=== PATIENT | male | born 1980 | race African-American/Black ===

== ENCOUNTER 2023-05-25 12:15 | Emergency (ER) | payer MEDICAID, SELFPAY ==
[2023-05-25 13:30] VITALS: BP 127/78; PULSE 84; RESP 16; TEMP 36.9; O2SAT 98; BMI 24.6
--- NOTE | 2023-05-25 13:39 | ED.GENADULT ---
HPI - General Adult General Chief complaint: Back Pain/Injury Stated complaint: Chest pain, lower back pain Time Seen by Provider: 05/25/23 14:25 Source: patient and RN notes reviewed Mode of arrival: ambulatory Limitations: no limitations History of Present Illness HPI narrative: This is a 43-year-old Beninese Creole speaking male, with no known medical problems, presenting to the emergency department with complaints of back pain, nasal congestion, cough x 4 days. Patient denies any recent trauma or injury to his back. He denies any sick contacts. He states that he has been coughing up white-colored sputum. He denies any current chest pain, abdominal pain, nausea, vomiting or diarrhea. He has been taking Robitussin [id number] which has provided him with some relief. No other complaints or concerns at this time. MD complaint: Body aches, back pain, cough Onset (ago): day(s) Radiation: back Severity: moderate Quality: aching Pain Consistency: constant Relieving factors: none Exacerbating factors: none Associated symptoms: denies other symptoms Treatments prior to arrival: none Related Data Previous Rx's Medication Instructions Recorded acetaminophen 500 mg tablet 500 mg PO Q6H PRN pain #30 tabs 05/25/23 (Tylenol Extra Strength) benzonatate 200 mg capsule 200 mg PO TID PRN cough #14 caps 05/25/23 cyclobenzaprine 10 mg tablet 10 mg PO TID PRN muscle spasm #14 05/25/23 tabs ibuprofen 600 mg tablet 600 mg PO Q6H PRN pain #30 tabs 05/25/23 lidocaine 5 % topical patch 1 patch topical DAILY #30 ea 05/25/23 (Lidoderm) Allergies Allergy/AdvReac Type Severity Reaction Status Date / Time No Known Allergies Allergy Verified 05/25/23 13:38 Review of Systems Review of Systems: Yes all other systems are reviewed and are negative Constitutional: Constitutional: Reports as per [facility] Past Medical History Attestation statement: The following information was validated with the patient. Onset Date is defined in the Problem List Problems that require an onset date and time if occurred within 24 hrs of arrival to the ED Aortic Dissection and Rupture; Neurologic impairment; Cardiopulmonary Arrest; Endotracheal Intubation; Insertion or Replacement of Mechanical Circulatory Assist Device Social History Social History Advance Directives: No Advance Directives Information Provided: Yes Physical Exam ED Vital Signs: Vital Signs - 24 hr 05/25/23 13:30 05/25/23 15:49 05/25/23 18:46 Temperature 98.5 F 97.8 F 98.1 F Pulse Rate 84 80 86 Respiratory Rate 16 18 18 Blood Pressure 127/78 119/77 124/76 Pulse Oximetry 98 100 99 Oxygen Delivery Method Room Air Room Air Room Air BMI result Body Mass Index 24.6 Const General: cooperative, comfortable and no acute distress Orientation/consciousness: patient oriented x3 Limitations: no limitations HENMT Head: Yes normal to inspection, Yes normocephalic and Yes atraumatic Ears: hearing grossly normal bilaterally and TM's normal bilaterally General nose exam: Normal external nose present Face and sinus: Yes normal facial exam Mouth: Normal oral and palatal mucosa present, oropharynx normal and moist mucous membranes Throat: Yes posterior oropharynx normal, Yes tonsils normal and Yes uvula midline Eyes General: appearance normal, both eyes and all related structures Eyelids: Yes eyelids normal Conjunctivae: conjunctivae normal Sclerae: sclerae normal Pupils: Equal, round and reactive pupils present EOM: EOMs intact bilaterally Neck Neck: Yes normal visual inspection, Yes full ROM and Yes no lymphadenopathy Lymphatic: no lymphadenopathy noted Chest Chest palpation & inspection: normal inspection of the chest Resp Effort & Inspection: normal respiratory effort and able to speak in complete sentences Auscultation: clear to auscultation bilaterally, no crackles, no rales, no rhonchi and no wheezes Cardio Rate: regular rate Rhythm: regular rhythm Heart sounds: S1 normal heart sound present and S2 normal heart sound present GI Inspection: Yes normal to inspection Back/Spine/Pelvis Other: Tenderness to palpation along the lumbar paraspinous muscles with spasm. Skin General skin exam: no rashes or lesions noted Trauma: no lacerations or abrasions Wounds: no wounds Neuro General: patient oriented x3 and moves all extremities Cranial nerves: Yes Equal, round and reactive pupils present Extrem General: Yes normal to inspection Right upper extremity: normal to inspection Left upper extremity: normal to inspection Right lower extremity: normal to inspection Left lower extremity: normal to inspection Course Course Course Narrative: RME: 43 yold male history of pneumonia presents to ED for low back pain, nasal congestion and cough x 5 days. Patient was waiting to be seen at [facility] but left due to wait of 13 hours. On arrival, vital signs within normal limits. Patient has tenderness palpation along the paraspinous muscles. Patient denies any urinary symptoms or abdominal pain. Patient states no pleurisy recent long travel recent surgery. Patient states no trauma leg pain. EKG labs chest x-ray lumbar x-ray ordered. Medical Decision Making Medical Decision Making [facility] Narrative: This is a 43-year-old male presenting to the emergency department for evaluation of back pain, cough, congestion x4 days. He does report that he has had chest pain, denies any current chest pain. On examination, patient has tenderness palpation along the trapezius muscles and paraspinous muscles. On arrival, vital signs within normal limits. Lumbar spine x-ray and chest x-ray was ordered and was unremarkable. Viral swabs were obtained, negative for influenza, RSV and COVID. Patient is PERC negative. Denies any increased pain with deep inspiration, denies any recent travel, surgery, hospitalizations, history of blood clots. Patient has no lower extremity edema or calf tenderness. EKG normal sinus rhythm with no ST elevation or depression. Lumbar spine x-ray and chest x-ray unremarkable. Symptoms consistent with muscle spasms and viral URI. Discussed findings and workup with patient, he understands and agrees with plan. Troponin x2 negative, urine unremarkable. Chemistry within normal limits. Patient has a heart score of 0 He is given return precautions. Patient understands agrees with plan. Stable for discharge Differential Diagnosis Differential Diagnoses: The differential diagnosis associated with the presentation includes URI, pneumonia, pneumothorax, PE-unlikely, so spasms, ACS-unlikely Admission/Observation Consideration of admission/observation: Escalation of care including admission/observation considered Escalation of care including admission observation was considered. Lab Data [facility] Lab Attestation statement: I reviewed the patient's lab results. See [facility] 05/25/23 14:47 05/25/23 14:47 Labs: Lab Results 05/25/23 05/25/23 05/25/23 Range/Units 14:47 16:42 18:17 WBC 6.4 (4.8-10.8) X10*3/uL RBC 5.02 (4.60-5.80) X10*6/uL Hgb 15.4 (14.0-18.0) g/dl Hct 45.3 (42.0-52.0) % MCV 90.2 (80.0-98.0) fL MCH 30.7 (27.0-33.0) pg MCHC 34.0 (31.0-36.0) g/dl RDW 13.2 (11.0-16.0) % Plt Count 228 (160-400) X10*3/uL MPV 10.5 (9.4-12.4) fL Immature Gran % (Auto) 0.2 (0.0-0.4) % Neut % (Auto) 38.0 L (45-73) % Lymph % (Auto) 52.2 H (20-40) % Clark % (Auto) 8.3 (2-11) % Eos % (Auto) 0.8 (0-4) % Baso % (Auto) 0.5 (0-2) % Lymph # (Auto) 3.4 (1.2-4.9) X10*3/uL Clark # (Auto) 0.5 (0.1-1.2) X10*3/uL Eos # (Auto) 0.1 (0.0-0.4) X10*3/uL Baso # (Auto) 0.0 (0.0-0.2) X10*3/uL Abs Immat Gran (auto) 0.01 (0.00-0.03) X10*3/uL Absolute Neuts (auto) 2.5 (2.0-8.3) x10*3/uL Absolute Nucleated RBC 0.000 (0.0-0.012) X10*3/uL Nucleated RBC % (auto) 0.0 (0.0-0.2) /100WBC Sodium 139 (135-145) mmol/L Potassium 4.2 (3.3-5.1) mmol/L Chloride 103 (96-108) mmol/L Carbon Dioxide 28 (22-29) mmol/L Anion Gap 12 (12-20) BUN 15 (9-16) mg/dL Creatinine 0.98 (0.5-1.4) mg/dL Estim Creat Clear Calc 105.6 Estimated GFR > 60 Random Glucose 91 (60-115) mg/dL Calcium 9.6 (8.4-10.2) mg/dL Total Bilirubin 0.7 (0.0-1.0) mg/dL AST 21 (5-37) U/L ALT 17 (0-40) U/L Alkaline Phosphatase 80 (39-117) U/L Troponin I High Sens < 2.7 < 2.7 (<3.5-35.0) ng/L Total Protein 7.9 (6.5-8.0) g/dL Albumin 4.6 (3.5-5.0) g/dL Urine Color Yellow Urine Appearance Clear Urine pH 7.0 (5.0-9.0) Ur Specific [place] 1.025 (1.005-1.025) Urine Protein Trace (Neg-Trace) mg/dL Urine Glucose (UA) Negative (Negative) mg/dL Urine Ketones Negative (Negative) mg/dL Urine Blood Negative (Negative) Urine Nitrite Negative (Negative) Ur Leukocyte Esterase Negative (Negative) Influenza Type A (PCR) NEGATIVE (Negative) Influenza Type B (PCR) NEGATIVE (Negative) RSV RNA Qual (PCR) NEGATIVE (Negative) SARS-CoV-2 RNA (RT-PCR) NEGATIVE (Negative) Independent Interpretation I performed an independent interpretation of an: EKG Interpretation: EKG normal sinus rhythm at a ventricular rate of 67 beats per minute, no ST elevation or depression. Radiology Impression Discussion of test interpretation with radiology: I have reviewed the radiologist's reading. Radiologist Impression: EXAMINATION: XR LUMBOSACRAL SPINE CLINICAL INFORMATION: Low back pain. COMPARISON: None available. TECHNIQUE: AP and lateral views of the lumbar spine and lateral view of the lumbosacral junction. FINDINGS: The vertebral bodies and posterior elements are normal. The disc spaces are preserved and the vertebral alignment is normal. The paraspinal soft tissues are normal. XR/XR lumbar spine 2-3V IMPRESSION: Normal lumbar spine radiographs. EXAMINATION: XR CHEST CLINICAL INFORMATION: Chest pain. COMPARISON: None available. TECHNIQUE: Frontal view of the chest was obtained. FINDINGS: The cardiomediastinal silhouette is within normal limits. No vascular congestion or edema. Lungs are well expanded. No consolidation. No effusion or pneumothorax. XR/XR chest 1V IMPRESSION: No acute cardiopulmonary findings. Dictated By: Ashish Marcelo MD Scores Heart Score History: -0- slightly suspicious ECG: -0- normal Age: -0- < or = 45 Risk factory: -0- no risk factors known Troponin: -0- < or = normal limit Score: 0 Risk: 1.7% Discharge Plan Discharge Clinical Impression: Acute viral syndrome, Lumbar paraspinal muscle spasm Patient Disposition: Home, Self-Care Instructions: Viral Syndrome (ED), Muscle Spasm (ED), Back Pain (ED) Additional Instructions: Your seen in the emergency department due to back pain. You had a chest x-ray and back x-ray which were normal. You also tested negative for COVID, flu, and RSV. Your EKG was reassuring. Your symptoms are likely due to a virus as well as muscle spasms. Please take Tylenol and/or ibuprofen as needed for pain. Flexeril can help with muscle spasms, please be advised that this can cause drowsiness, do not drink alcohol or drive while taking this. Lidoderm patches can also help with your symptoms. Gentle stretching and massage can help with your symptoms. Follow up with the primary care physician. Ou w? nan depatman ijans ak?z doul? nan do. Ou te gen yon radyografi pwatrin ak radyografi do ki te n?mal. Ou te teste negatif osbaldo verna COVID, yard switcher, ak RSV. EKG ou te rasire. Sent?m ou yo gen anpil chans ak?z yon viris ak spasm nan misk. Tanpri pran Tylenol ak/oswa ibipwof?n michael sa neses? verna doul?. Flexeril ka phong ak spasm nan misk, tanpri dwe avize ke sa ka lak?z marco a zhang bw? alk?l oswa kondmike castillo w ap pran sa a. Plak Lidoderm ka phong osbaldo ak sent?m ou yo. [place] etann ak masaj ka phong ak sent?m ou yo. Swiv ak dokt? prensipal la. Prescriptions: New lidocaine [Lidoderm] 5 % adhesive patch,medicated 1 patch topical DAILY Qty: 30 0RF Rx Instructions: leave on most painful area for up to 12 hrs acetaminophen [Tylenol Extra Strength] 500 mg tablet 500 mg PO Q6H PRN (Reason: pain) Qty: 30 0RF ibuprofen 600 mg tablet 600 mg PO Q6H PRN (Reason: pain) Qty: 30 0RF benzonatate 200 mg capsule 200 mg PO TID PRN (Reason: cough) Qty: 14 0RF cyclobenzaprine 10 mg tablet 10 mg PO TID PRN (Reason: muscle spasm) Qty: 14 0RF Stand Alone Forms: Work/School Release Interventions: ED Discharge Assessment Last Done: 05/25/23 20:16 Discharge Date/Time: 05/25/23 20:17
[2023-05-25 15:49] VITALS: BP 119/77; PULSE 80; RESP 18; TEMP 36.6; O2SAT 100
--- NOTE | 2023-05-25 15:52 | PC.NURSE ---
patient a&ox3, vss, pt previously had labs drawn, swab obtained, c/o cough and back pain-no injury noted, call kahn within reach, will continue to monitor
[2023-05-25 18:46] VITALS: BP 124/76; PULSE 86; RESP 18; TEMP 36.7; O2SAT 99
--- NOTE | 2023-05-25 18:47 | PC.NURSE ---
patient a&ox3, sitting in chair at bedside, vss, pt awaiting provider, will continue to monitor
== END 2023-05-25 20:17 | disposition home or self-care (01) ==
PROVIDERS: Emergency Provider Emergency Medicine
DX: B34.9 Viral infection, unspecified (principal); M62.830 Muscle spasm of back; M54.50 Low back pain, unspecified; Z20.822 Contact with and (suspected) exposure to COVID-19; Z20.828 Contact with and (suspected) exposure to other viral communicable diseases; R05.9 Cough, unspecified
CPT/HCPCS: 0241U; 36415; 71045; 72100; 80053; 81003; 84484; 85025; 93005; 99283; 99284

== ENCOUNTER → 2023-05-25 12:19 | Outpatient (BNV) | payer MEDICAID, SELFPAY | PROVIDERS: Emergency Provider Emergency Medicine; Visit Provider Internal Medicine Cardiovascular Disease | DX: R07.9 Chest pain, unspecified (principal) | CPT/HCPCS: 93010 ==

== ENCOUNTER 2024-08-07 15:39 | Outpatient (REF) | payer MEDICAID, SELFPAY ==
[2024-08-07 16:17] LABS: MANUAL DIFF FLAG NO
[2024-08-07 16:22] LABS: Basophils Absolute Auto 0.1 X10*3/uL (0.0-0.2); Basophils Percent Auto 0.8 % (0-2); Eosinophils Absolute Auto 0.2 X10*3/uL (0.0-0.4); Eosinophils Percent Auto 2.6 % (0-4); Hematocrit 45.3 % (42.0-52.0); Hemoglobin 15.2 g/dl (14.0-18.0); Imm Gran Abs Auto 0.01 X10*3/uL (0.00-0.03); Imm Gran Pct Auto 0.2 % (0.0-0.4); Lymphocytes Absolute Auto 2.6 X10*3/uL (1.2-4.9); Lymphocytes Percent Auto 41.9 % (20-40); Mean Corpuscular HGB Conc 33.6 g/dl (31.0-36.0); Mean Corpuscular Hemoglobin 30.7 pg (27.0-33.0); Mean Corpuscular Volume 91.5 fL (80.0-98.0); Mean Platelet Volume 11.7 fL (9.4-12.4); Monocytes Absolute Auto 0.5 X10*3/uL (0.1-1.2); Monocytes Percent Auto 8.5 % (2-11); Neutrophils Absolute Auto 2.9 x10*3/uL (2.0-8.3); Platelet Count 236 X10*3/uL (160-400); Red Blood Count 4.95 X10*6/uL (4.60-5.80); Red Cell Distribution Width 13.4 % (11.0-16.0); White Blood Count 6.3 X10*3/uL (4.8-10.8)
[2024-08-07 17:31] LABS: Alanine Aminotransferase 24 U/L (0-40); Albumin Level 4.5 g/dL (3.5-5.0); Alkaline Phosphatase 82 U/L (39-117); Anion Gap 9 (12-20); Aspartate Amino Transferase 23 U/L (5-37); Bilirubin Total 0.7 mg/dL (0.0-1.0); Blood Urea Nitrogen 17 mg/dL (9-16); Calcium 9.7 mg/dL (8.4-10.2); Carbon Dioxide 25 mmol/L (22-29); Chloride 110 mmol/L (96-108); Cholesterol 190 mg/dL (<200); Estimated Glomerular Filt Rate > 60; Glucose Random 76 mg/dL (60-115); HDL Cholesterol 37 mg/dL (>40); LDL Cholesterol Calculated 128 mg/dL (<100); Potassium 4.4 mmol/L (3.3-5.1); Sodium 140 mmol/L (135-145); Total Protein 7.8 g/dL (6.5-8.0); Triglycerides 125 mg/dL (<150)
--- OUTSIDE RECORDS SUMMARY | 2024-08-07 17:36 | XMS_ITS | Encounter Summary ---
Author Organization [employer] Address [address] [place] [address] Care Team Providers Care Aeronautical Engineer Name Role Phone Janice Marin MD Primary Care Provider [phone] Reason for Visit * Reason Comments Pre-visit Planning SDOH screening compl eted on 05/23/2024 Encounter Details Date Type Department Care Team ([facility] st Contact Info) Description 07/30/2024 Patient Outreach [facility] MEDICINE [address] [place], [place] [phone] Janice Marin MD [address] [place], [place] [phone] Pre-visit Planning (SDOH screening completed on 05/23/2024) Social History Tobacco Use Types Packs/Day Years Used Date Smoking Tobacco: Never Smokeless Tobacco: Never Alcohol Use Standard Drinks/Week Comments Not Currently 0 (1 standard drink = 0.6 oz pur e alcohol) ocasional Depression Answer Date Recorded Patient Health Questionnaire-9 Score 9 11/04/2022 Housing Stability Answer Date Recorded What is your housing situation today? I have dandre velázquez 05/23/[address] you li ve. Do you have problems with any of the following? None of the above 05/23/2024 Food Insecurity Answer Date Recorded Within the past 12 months, y ou worried that your food would run out before you got money to buy more: Never True 05/23/2024 Within the past 12 months,th e food you bought just didn't last and you didn't have enough money to get more: Never True 06/2024 Transportation Answer Date Recorded In the past 12 months, has l ack of transportation kept you from medical appts, meetings, work or from getting things needed for daily living? No 05/23/2024 Utilities Answer Date Recorded In the past 12 months, has t he electric, gas, oil or water company threatened to shut off services in your home? No 05/23/2024 Depression Answer Date Recorded Patient Health Questionnaire-2 Score 3 11/04/2022 Internet Access Answer Date Recorded Internet Access Q1 Yes 05/23/2024 Internet Access Q2 Not on file 05/23/2024 Sex and Gender Information Value Date Recorded Sex Assigned at Male 09/27/2022 9:41 AM EDT Legal Sex Male 9:36 AM EDT Gender Identity Male 09/27/2022 9:41 AM EDT Sexual Orientation Straight 09/27/2022 9: 41 AM EDT Sexual Orientation Choose not to disclose 2022 9:41 AM EDT documented as of this encounter Progress Notes * Tracy Solares - 07/30/2024 12:53 PM EDT CC Tracy. Placed outbound call to patient to complete pre-visit planning. No answer at this time. Patient name and were not confirmed. CC left voicemail requesting return call. Direct contact information provided. documented in this encounter Plan of Treatment Not on file documented as of this encounter Visit Diagnoses Not on filedocumented in this encounter Additional Health Concerns Assessment Noted Time PHQ-9 Depression Total Score: 9 11/05/19 23 2:37 PM EDT documented as of this encounter Care Teams Aeronautical Engineer Relationship Specialty Start Date End Date Janice Marin MD [address] [place] [id number] PCP - General Family Medicine 01/19/24 documented as of this encounter
--- OUTSIDE RECORDS SUMMARY | 2024-08-07 17:36 | XMS_ITS | Clinical Summary ---
Demographics Address [address] [place] [address] Mobile Phone Email Address Preferred Language Unknown Marital Status Church Affiliation Unknown Race Black or Marcia rican Ethnic Group Not or Lati no Author Organization [facility] Address [address] [place] [address] Support Name Relationship Address Phone Faye Lynch Spouse [address] [place] [address] Care Team Providers Care Perpetual Inventory Clerk Name Role Phone Roslyn Mcginnis Primary Care Provider [phone] Source Comments PLEASE NOTE, if this patient is a minor, it may be UNLAWFUL to discuss sensitive information that is contained in these records (such as FAMILY PLANNING, MENTAL HEALTH or SUBSTANCE ABUSE) with the minor patient's parent or other person without the patient's specific authorization.[facility] Allergies No known active allergies Medications No known medications Active Problems No known active problems Family History Medical History Relation Name Comments Heart Problems Father Relation Name Status Comments Brother 3 Alive Daughter 4 Alive Father Mother Alive Sister 2 Alive Social History Tobacco Use Types Packs/Day Years Used Date Smoking Tobacco: Never Smokeless Tobacco: Never Tobacco Cessation:Counseling Given: Not Answered Alcohol Use Standard Drinks/Week Comments Yes 0 (1 standard drink = 0.6 oz pur e alcohol) rare Social Connections Answer Date Recorded Connectedness 0 02/04/2024 Financial Resource Strain Answer Date R ecorded Financial Resource Strain 0 2022 Stress Answer Date Recorded Stress 0 04/07/2023 Physical Activity Answer Date Recorded Physical Activity 0 04/07/2023 Food Insecurity Answer Date Recorded Food 0 02/15/2024 Transportation Needs Answer Date Record ed Transportation 0 04/07/2023 Housing Stability Answer Date Recorded Housing 0 04/07/2023 Safety and Environment Answer Date Gilberto rded Safety 0 04/07/2023 Utilities Answer Date Recorded Utilities 0 04/07/2023 Employment Answer Date Recorded Stress 0 02/04/2024 Sex and Gender Information Value Date Recorded Sex Assigned at Male 08/02/2023 6:11 AM PDT Legal Sex Male 10:17 AM PDT Gender Identity Male 08/02/2023 6:11 AM PDT Sexual Orientation Straight 08/02/2023 6: 11 AM PDT Last Filed Vital Signs Vital Sign Reading Time Taken Comments Blood Pressure 137/88 11/29/2023 9:31 AM EDT Pulse 75 11/29/2023 9:31 AM EDT Temperature - - Respiratory Rate - - Oxygen Saturation - - Inhaled Oxygen Concentration - - Weight 81.9 kg (180 lb 9.6 oz) 08/01/2023 8:57 A M EDT Height - - Body Mass Index - - Plan of Treatment Health Maintenance Due Date Last Done Comments Diabetes Screening 1982 Hepatitis B Screening 1982 Hepatitis C Screening 1982 Lipid Screening 1982 HIV Screening 1997 Imm-DTaP/Tdap/Td (1 - Tdap) 2001 Imm-Hepatitis B (1 of 3 - 19+ 3-dose series) 1 [id number] ( season) 2024 Imm-Influenza (#1) 2024 Alcohol and Drug Screen 05/22/2024 Depression Annual Screen 05/22/2024 08/01/2023 Dental BW 10/06/2024 10/05/2023 Dental Examination 10/06/2024 10/05/2023 Tobacco Screening 11/14/2024 11/15/2023 Dental Perio Charting 11/16/2024 11/15/2023 Dental Prophy 11/16/2024 11/15/2023 Hypertension Screening (#1) 11/28/2024 Dental FMX/Pano 10/06/2028 10/05/2023 Procedures Procedure Name Priority Date/Time Associated Diagnosis Comments Full COMP PERIODONTAL EVALUATION - NEW/EST PATIENT Routine 11/15/2023 3:00 PM EDT Chronic gingivitis, plaque induced Full PROPHYLAXIS - ADULT Routine 024 3:00 PM EDT Chronic gingivitis, plaque induced Full INTRAORAL - COMP SERIES OF RADIOGRAPHIC IMAGES Routine 10/05/2023 1:40 PM EDT Caries of enamel (incipient) Caries Full COMP ORAL EVALUATION - NEW/ESTABLISHED PATIENT Routine 10/05/2023 1:40 PM EDT Caries of enamel (incipient) Caries from Last 3 Months or Most Recently Relevant to Health Maintenance Insurance [address] [employer] [place] MEDICAID DENTAL Care Teams Perpetual Inventory Clerk Relationship Specialty Start Date End Date Roslyn Mcginnis PA [address] [place] [address] PCP - General Primary Care 08/01/23
--- OUTSIDE RECORDS SUMMARY | 2024-08-07 17:36 | XMS_ITS | Encounter Summary ---
Author Organization [employer] Address [address] [place] [address] Care Team Providers Care Chair Inspector And Leveler Name Role Phone Janice Marin MD Primary Care Provider [phone] Encounter Details Date Type Department Care Team (Latest Contact Info) Description 08/07/2024 Travel Social History Tobacco Use Types Packs/Day Years Used Date Smoking Tobacco: Never Smokeless Tobacco: Never Alcohol Use Standard Drinks/Week Comments Not Currently 0 (1 standard drink = 0.6 oz pur e alcohol) ocasional Alcohol Answer Date Recorded How often do you have a drink containing alcohol ? 1 08/07/2024 How many drinks containing a lcohol do you have on a typical day when you are drinking? 0 08/07/2024 How often do you have six or more drinks on one occasion? 0 08/07/2024 Depression Answer Date Recorded Patient Health Questionnaire-9 Score 2 08/07/2024 Patient Health Questionnaire-9 Score 2 08/07/2024 Last PHQ-9: Questionnaire Data Not on file 0 08/07/2024 Housing Stability Answer Date Recorded What is [...] Answer Date Recorded Patient Health Questionnaire-2 Score 0 08/07/2024 Internet Access Answer Date Recorded Internet Access [...] AM EDT documented as of this encounter Plan of Treatment Not on file documented as of this encounter Visit Diagnoses Not on filedocumented in this encounter Additional Health Concerns Assessment Noted Time PHQ-9 Depression Total Score: 2 08/08/19 25 4:17 PM EDT documented as of this encounter Care Teams Chair Inspector And Leveler Relationship Specialty Start Date End Date Janice Marin MD [address] [place] [address] PCP - General Family Medicine 01/19/24 documented as of this encounter
--- OUTSIDE RECORDS SUMMARY | 2024-08-07 17:36 | XMS_ITS | Encounter Summary ---
Author Organization [employer] Address [address] [facility] [address] [place] [address] Care Team Providers Care Production Ski Repairer Name Role Phone Janice Marin MD Primary Care Provider [phone] Reason for Visit * Reason Comments New patient Encounter Details Date Type Department Care Team ([facility] st Contact Info) Description 08/07/2024 2:00 PM EDT Office Visit [facility] [address] [place], [place] [phone] Janice Marin MD [address] [place], [place] [phone] Screening examination for STI (Primary Dx); FH: premature coronary heart disease Social History Tobacco Use Types Packs/Day Years Used Date Smoking Tobacco: Never Smokeless Tobacco: Never Tobacco Cessation:Counseling Given: Not Answered Alcohol Use Standard Drinks/Week Comments Not Currently [...] AM EDT documented as of this encounter Last Filed Vital Signs Vital Sign Reading Time Taken Comments Blood Pressure 122/86 08/07/2024 2:20 PM EDT Pulse 96 08/07/2024 2:20 PM EDT Temperature 37.1 ??C (98.7 ??F) 08/07/2024 2:20 PM ED T Respiratory Rate 18 08/07/2024 2:20 PM EDT Oxygen Saturation - - Inhaled Oxygen Concentration - - Weight 85.2 kg (187 lb 12.8 oz) 08/07/2024 2:20 PM EDT Height 180.3 cm (5' 11 ) 08/07/2024 2:20 PM EDT Body Mass Index 26.19 08/07/2024 2:20 PM EDT documented in this encounter Plan of Treatment Scheduled Orders Name Type Priority Associated Diagnoses Orde r Schedule HIV-1/2 Antigen and Antibodies, Fourth Generation, with Reflexes Lab Routine Screening examination for STI Expected: 08/07/2024 (Approximate), Expires: 08/07/2025 Hepatitis C Antibody with Reflex to HCV, RNA, Quantitative, Real-Time PCR Lab Routine Screening examination for STI Expected: 08/07/2024, Expires: 08/07/2025 RPR (Monitor) with Reflex to??Titer Lab Routine Screening examination for STI Expected: 08/07/2024, Expires: 08/07/2025 Chlamydia/N. Gonorrhoeae RNA, TMA, Urogenitial Microbiology Routine Screening examination for STI Expected: 08/07/2024 (Approximate), Expires: 08/07/2025 documented as of this encounter Procedures Procedure Name Priority Date/Time Associated Diagnosis Comments CBC WITH AUTO DIFFERENTIAL Routine 08/07/2024 3:42 PM EDT FH: premature coronary heart disease LIPID PANEL, STANDARD Routine 08/07/2024 3:42 PM EDT FH: premature coronary heart disease COMPREHENSIVE METABOLIC PANEL Routine 08/07/2024 3:42 PM EDT FH: premature coronary heart disease documented in this encounter Results * (ABNORMAL) Comprehensive Metabolic Panel (08/07/2024 3:42 PM EDT) Sodium 140 135 - 145 mmol/L [facility] Potassium 4.4 3.3 - 5.1 mmol/L [facility] Chloride 110(H) 96 - 108 mmol/L [facility] Carbon Dioxide 25 22 - 29 mmol/L [facility] Anion Gap 9(L) 12 - 20 [facility] Urea Nitrogen (BUN) 17(H) 9 - 16 mg/dL [facility] Creatinine, Serum 1.16 0.5 - 1.4 mg/dL [facility] Estimated Glomerular Filt Rate >60 [facility] Comment:Chronic Kidney Disea se: Estimated GFR < 60 mL/min/1.99k4Pendhc Kidney Disease: Estimated GFR < 15 mL/min/1.73m2 Glucose 76 60 - 115 mg/dL [facility] Calcium 9.7 8.4 - 10.2 mg/dL [facility] Bilirubin, Total 0.7 0.0 - 1.0 mg/dL [facility] Aspartate Amino Transferase 23 5 - 37 U/L [facility] Alanine Aminotransferase 24 0 - 40 U/L [facility] Total Protein 7.8 6.5 - 8.0 g/dL [facility] Albumin Level 4.5 3.5 - 5.0 g/dL [facility] Alkaline Phosphatase 82 39 - 117 U/L [facility] Blood Venous blood specimen / Unknown 08/07/2024 3:42 PM EDT 08/07/2024 4:08 PM EDT us Janice Marin MD LAB BLOOD ORDERABLES Final Res ult [facility] [address] [place] [phone] * (ABNORMAL) CBC auto differential (08/07/2024 3:42 PM EDT) White Blood Count 6.3 4.8 - 10.8 X10*3/uL [facility] Red Blood Count 4.95 4.60 - 5.80 X10*6/uL [facility] Hemoglobin 15.2 14.0 - 18.0 g/dl [facility] Hematocrit 45.3 42.0 - 52.0 % [facility] Mean Corpuscular Volume 91.5 80.0 - 98.0 fL [facility] Mean Corpuscular Hemoglobin 30.7 27.0 - 33.0 pg [facility] Mean Corpuscular HGB Conc 33.6 31.0 - 36.0 g/dl [facility] Red Cell Distribution Width 13.4 11.0 - 16.0 % [facility] Platelet Count 236 160 - 400 X10*3/uL [facility] Mean Platelet Volume 11.7 9.4 - 12.4 fL [facility] Neutrophils Percent Auto 46.0 45 - 73 % [facility] Imm Gran Pct Auto 0.2 0.0 - 0.4 % [facility] Lymphocytes Percent Auto 41.9(H) 20 - 40 % [facility] Monocytes Percent Auto 8.5 2 - 11 % [facility] Eosinophils Percent Auto 2.6 0 - 4 % [facility] Basophils Percent Auto 0.8 0 - 2 % [facility] NRBC Pct Auto 0.0 0.0 - 0.2 /100WBC [facility] Neutrophils Absolute Auto 2.9 2.0 - 8.3 x10*3/uL [facility] Imm Gran Abs Auto 0.01 0.00 - 0.03 X10*3/uL [facility] Lymphocytes Absolute Auto 2.6 1.2 - 4.9 X10*3/uL [facility] Monocytes Absolute Auto 0.5 0.1 - 1.2 X10*3/uL [facility] Eosinophils Absolute Auto 0.2 0.0 - 0.4 X10*3/uL [facility] Basophils Absolute Auto 0.1 0.0 - 0.2 X10*3/uL [facility] NRBC Abs Auto 0.000 0.0 - 0.012 X10*3/uL [facility] Blood Venous blood specimen / Unknown 08/07/2024 3:42 PM EDT 08/07/2024 4:08 PM EDT us Janice Marin MD LAB BLOOD ORDERABLES Final Res ult [facility] [address] [place] [phone] * (ABNORMAL) Lipid Panel, Standard (08/07/2024 3:42 PM EDT) Triglycerides 125 <150 mg/dL [facility] Comment:Desirable Triglyceri de: less than 150 mg/dLBorderline High Triglyceride 150-199 mg/dLHigh Triglyceride: 200-499 mg/dLVery High Triglyceride: greater than or equal to 5OO mg/dL Cholesterol 190 <200 mg/dL [facility] Comment:Desirable Cholestero l: less than 200 mg/dLBorderline High Cholesterol: 200-239 mg/dLHigh Cholesterol: greater than 239 mg/dL LDL Cholesterol Calculated 128(H) <100 mg/dL [facility] Comment:Desirable LDL: less than 100 mg/dLNear Optimal/Above Optimal LDL: 110- 129 mg/dLBorderline High LDL: 130-159 mg/dLHigh LDL: 160-189 mg/dLVery High LDL: greater than or equal to 190 mg/dL HDL Cholesterol 37(L) >40 mg/dL [facility] Comment:Desirable HDL: great er than 40 mg/dL Note: This HDL assay may give artificially low results in patients with liver disease. Blood Venous blood specimen / Unknown 08/07/2024 3:42 PM EDT 08/07/2024 4:08 PM EDT us Janice Marin MD LAB BLOOD ORDERABLES Final Res ult [facility] [address] [place] [phone] documented in this encounter Visit Diagnoses Diagnosis Screening examination for STI- Primary FH: premature coronary heart disease Family history of ischemic heart disease documented in this encounter Additional Health Concerns Assessment Noted Time PHQ-9 Depression Total Score: 2 08/08/19 25 4:17 PM EDT documented as of this encounter Care Teams Production Ski Repairer Relationship Specialty Start Date End Date Janice Marin MD [address] [place] [phone] PCP - General Family Medicine 01/19/24 documented as of this encounter
--- OUTSIDE RECORDS SUMMARY | 2024-08-07 17:36 | XMS_ITS | Clinical Summary ---
Author Organization [email or web address] Address [address] [facility] 7t [place] [address] Care Team Providers Care Auto Transmission Specialist Name Role Phone Janice Marin MD Primary Care Provider [phone] Allergies No known active allergies Medications cyclobenzaprine (Flexeril) 10 MG tablet Take 1 tablet (10 mg) by mouth 3 times daily for 10 days. 30 tablet 4 Active Acetaminophen Extra Strength 500 MG tablet TAKE 1 CAPSULE (500 MG) BY MOUTH EVERY 8 (EIGHT) HOURS IF NEEDED FOR MODERATE PAIN OR FEVER. 4 Active witch randi-glycerin (Tucks) pad Apply topically if needed for hemorrhoids. 100 each 5 Active polyethylene glycol, PEG, 3350 (MiraLax) 17 GM/SCOOP powder Take 17 g by mouth Once per day. 527 g 5 09/08/19 25 Active hydrocortisone 2.5 % cream Apply to rectum after bowel movement 60 g 5 Active cholecalciferol (Vitamin D-3) 50 MCG (1999 UT) capsule Take 1 capsule (50 mcg) by mouth Once per day. 90 capsule 3 5 Active melatonin 5 MG tablet Take 1 tablet (5 mg) by mouth at bedtime. 90 tablet 1 5 Active Active Problems No known active problems Encounters Date Type Department Care Team Description 08/07/2024 2:00 PM EDT Office Visit [facility] [address] [place] [phone] Janice Marin MD Screening examination for STI (Primary Dx); FH: premature coronary heart disease 08/07/2024 Travel 07/30/2024 Patient Outreach [facility] [address] [place] [phone] Janice Marin MD Pre-visit Planning (SDOH screening completed on 05/23/2024) 05/23/2024 Patient Outreach [facility] [address] [place] [phone] Janice Marin MD Pre-visit Planning (SDOH screening negative and tobacco screening negative) from Last 3 Months Family History Medical History Relation Name Comments Heart disease Father Relation Name Status Comments Father Social History Tobacco Use Types Packs/Day Years [...] not to disclose 2022 9:41 AM EDT Last Filed Vital Signs Vital Sign Reading Time Taken Comments Blood Pressure 122/86 08/07/2024 2:20 PM EDT Pulse 96 08/07/2024 2:20 PM EDT Temperature 37.1 ??C (98.7 ??F) 08/07/2024 2:20 PM ED T Respiratory Rate 18 08/07/2024 2:20 PM EDT Oxygen Saturation 97% 11/27/2023 2:44 PM EDT Inhaled Oxygen Concentration - - Weight 85.2 kg (187 lb 12.8 oz) 08/07/2024 2:20 PM EDT Height 180.3 cm (5' 11 ) 08/07/2024 2:20 PM EDT Body Mass Index 26.19 08/07/2024 2:20 PM EDT Plan of Treatment Health Maintenance Due Date Last Done Comments HIV Screening 1982 Lipid Panel 1982 08/07/2024 Family Planning (PISQ) 1997 Hepatitis C Screening 2000 DTaP/Tdap/Td Vaccines (1 - Tdap) 2001 Hepatitis B Vaccines (1 of 3 - 19+ 3-dose series) 2001 COVID-19 Vaccine ( - 2023-2 5 season) 2024 Influenza Vaccine (#1) 2024 SDOH Screening 05/23/2025 05/23/2024 Alcohol/Substance Use Screening 08/07/2025 08/07/2024 Depression Screening 08/07/2025 08/07/2024, 08/07/2024 Tobacco Screening 08/07/2025 08/07/2024 Zoster Vaccines (1 of 2) 2032 RSV Patients and Patients Aged 60 years or older (1 - 1-dose 75+ series) 2057 HIB Vaccines Aged Out No longer eligi ble based on patient's age to complete this topic HPV Vaccines Aged Out No longer eligi ble based on patient's age to complete this topic Hepatitis A Vaccines Aged Out No long er eligible based on patient's age to complete this topic IPV Vaccines Aged Out No longer eligi ble based on patient's age to complete this topic Meningococcal Vaccine Aged Out No tunde jean-pierre eligible based on patient's age to complete this topic Pneumococcal Vaccine: Pediatrics (0 to 5 Years) and At-Risk Patients (6 to 49) Years) Aged Out No longer eligible b ased on patient's age to complete this topic RSV under 20 months Aged Out No longe r eligible based on patient's age to complete this topic Rotavirus Vaccines Aged Out No longer eligible based on patient's age to complete this topic Procedures Procedure Name Priority Date/Time Associated Diagnosis Comments COMPREHENSIVE METABOLIC PANEL Routine 08/07/2024 3:42 PM EDT FH: premature coronary heart disease CBC WITH AUTO DIFFERENTIAL Routine 08/07/2024 3:42 PM EDT FH: premature coronary heart disease LIPID PANEL, STANDARD Routine 08/07/2024 3:42 PM EDT FH: premature coronary heart disease from Last 3 Months Results * (ABNORMAL) CBC auto differential (08/07/2024 3:42 PM EDT) White Blood Count 6.3 4.8 - 10.8 X10*3/uL [facility] Red Blood Count 4.95 4.60 - 5.80 X10*6/uL [facility] Hemoglobin 15.2 14.0 - 18.0 g/dl [facility] Hematocrit 45.3 42.0 - 52.0 % [facility] Mean Corpuscular Volume 91.5 80.0 - 98.0 fL [facility] Mean Corpuscular Hemoglobin 30.7 27.0 - 33.0 pg [facility] Mean Corpuscular HGB Conc 33.6 31.0 - 36.0 g/dl [facility] Red Cell Distribution Width 13.4 11.0 - 16.0 % [facility] Platelet Count 236 160 - 400 X10*3/uL [facility] Mean Platelet Volume 11.7 9.4 - 12.4 fL [facility] Neutrophils Percent Auto 46.0 45 - 73 % [facility] Imm Gran Pct Auto 0.2 0.0 - 0.4 % [facility] Lymphocytes Percent Auto 41.9(H) 20 - 40 % [facility] Monocytes Percent Auto 8.5 2 - 11 % [facility] Eosinophils Percent Auto 2.6 0 - 4 % [facility] Basophils Percent Auto 0.8 0 - 2 % [facility] NRBC Pct Auto 0.0 0.0 - 0.2 /100WBC [facility] Neutrophils Absolute Auto 2.9 2.0 - 8.3 x10*3/uL [facility] Imm Gran Abs Auto 0.01 0.00 - 0.03 X10*3/uL [facility] Lymphocytes Absolute Auto 2.6 1.2 - 4.9 X10*3/uL [facility] Monocytes Absolute Auto 0.5 0.1 - 1.2 X10*3/uL [facility] Eosinophils Absolute Auto 0.2 0.0 - 0.4 X10*3/uL [facility] Basophils Absolute Auto 0.1 0.0 - 0.2 X10*3/uL [facility] NRBC Abs Auto 0.000 0.0 - 0.012 X10*3/uL [facility] Blood Venous blood specimen / Unknown 08/07/2024 3:42 PM EDT 08/07/2024 4:08 PM EDT us Janice Marin MD LAB BLOOD ORDERABLES Final Res ult [facility] [address] [place] [phone] * (ABNORMAL) Lipid Panel, Standard (08/07/2024 3:42 PM EDT) Triglycerides 125 <150 mg/dL [facility] Comment:Desirable Triglyceri de: less than 150 mg/dLBorderline High Triglyceride 150-199 mg/dLHigh Triglyceride: 200-499 mg/dLVery High Triglyceride: greater than or equal to 5OO mg/dL Cholesterol 190 <200 mg/dL [facility] Comment:Desirable Cholestero l: less than 200 mg/dLBorderline High Cholesterol: 200-239 mg/dLHigh Cholesterol: greater than 239 mg/dL LDL Cholesterol Calculated 128(H) <100 mg/dL [facility] Comment:Desirable LDL: less than 100 mg/dLNear Optimal/Above Optimal LDL: 110- 129 mg/dLBorderline High LDL: 130-159 mg/dLHigh LDL: 160-189 mg/dLVery High LDL: greater than or equal to 190 mg/dL HDL Cholesterol 37(L) >40 mg/dL [facility] Comment:Desirable HDL: great er than 40 mg/dL Note: This HDL assay may give artificially low results in patients with liver disease. Blood Venous blood specimen / Unknown 08/07/2024 3:42 PM EDT 08/07/2024 4:08 PM EDT us Janice Marin MD LAB BLOOD ORDERABLES Final Res ult [facility] [address] [place] [phone] * (ABNORMAL) Comprehensive Metabolic Panel (08/07/2024 3:42 PM EDT) Sodium 140 135 - 145 mmol/L [facility] Potassium 4.4 3.3 - 5.1 mmol/L [facility] Chloride 110(H) 96 - 108 mmol/L [facility] Carbon Dioxide 25 22 - 29 mmol/L [facility] Anion Gap 9(L) 12 - 20 [facility] Urea Nitrogen (BUN) 17(H) 9 - 16 mg/dL [facility] Creatinine, Serum 1.16 0.5 - 1.4 mg/dL [facility] Estimated Glomerular Filt Rate >60 [facility] Comment:Chronic Kidney Disea se: Estimated GFR < 60 mL/min/[id number] Kidney Disease: Estimated GFR < 15 mL/min/1.73m2 Glucose 76 60 - 115 mg/dL [facility] Calcium 9.7 8.4 - 10.2 mg/dL [facility] Bilirubin, Total 0.7 0.0 - 1.0 mg/dL [facility] Aspartate Amino Transferase 23 5 - 37 U/L [facility] Alanine Aminotransferase 24 0 - 40 U/L [facility] Total Protein 7.8 6.5 - 8.0 g/dL [facility] Albumin Level 4.5 3.5 - 5.0 g/dL [facility] Alkaline Phosphatase 82 39 - 117 U/L [facility] Blood Venous blood specimen / Unknown 08/07/2024 3:42 PM EDT 08/07/2024 4:08 PM EDT us Janice Marin MD LAB BLOOD ORDERABLES Final Res ult [facility] [address] [place] [phone] from Last 3 Months Insurance N FULL BCBS PPO [facility] [place] [place] [address] [facility] Care Teams Auto Transmission Specialist Relationship Specialty Start Date End Date Janice Marin MD [address] [place] [phone] PCP - General Family Medicine 01/19/24
[2024-08-08 03:42] LABS: CT PCR NOT DETECTED (Not Detect.); NG PCR NOT DETECTED (Not Detect.)
[2024-08-08 07:59] LABS: HIV AB/AG Nonreactive (Nonreactive); HIV Num 1 0.07 S/CO (0.00-0.99); ~HepC Num1 0.12 S/CO (0.00-0.79); ~Hepatitis C Antibody Nonreactive (Nonreactive)
[2024-08-08 09:48] LABS: RPR Rapid Plasma Reagin NON-REACTIVE (NON-REACTIVE)
== END 2024-08-07 15:40 | disposition home or self-care (01) ==
LOC: HO.HHCL 15:39
PROVIDERS: Visit Provider General Practice
DX: Z11.3 Encounter for screening for infections with a predominantly sexual mode of transmission (principal); Z11.4 Encounter for screening for human immunodeficiency virus [HIV]; Z82.49 Family history of ischemic heart disease and other diseases of the circulatory system
CPT/HCPCS: 80053; 80061; 85025; 86592; 86803; 87389; 87491; 87591